=== PATIENT | female | born 1945 | race Caucasian/White ===

== ENCOUNTER 2016-10-22 16:38 | Emergency (ER) | payer MEDICARE, OTHER ==
[2016-10-22 17:26] VITALS: RESP 18
[2016-10-22 18:32] LABS: BASO % 0.4 % (0.0-2.0); EOS # 0.1 K/uL (0.0-0.7); EOS % 2.6 % (0.0-4.0); HEMATOCRIT 30.7 % (34.0-47.0); LYMPH # 1.9 K/uL (1.0-4.3); LYMPH % 54.2 % (20.0-40.0); MEAN CELL VOLUME 91.7 fL (81.0-99.0); MEAN CORPUSCULAR HEMOGLOBIN 28.9 pg (27.0-31.0); MEAN CORPUSCULAR HGB CONC 31.5 g/dL (33.0-37.0); MEAN PLATELET VOLUME 8.3 fL (7.2-11.7); MONO # 0.4 K/uL (0.0-0.8); MONO % 10.4 % (0.0-10.0); RED CELL DISTRIBUTION WIDTH 21.8 % (11.5-14.5); WHITE BLOOD COUNT 3.5 K/uL (4.8-10.8)
[2016-10-22 18:36] LABS: CHLORIDE 98 mmol/L (98-107); SODIUM 137 mmol/L (132-148)
[2016-10-22 18:39] LABS: ALB/GLOB RATIO 0.9 (1.0-2.1); ALKALINE PHOSPHATASE 84 U/L (38-126); ALT/SGPT 55 U/L (9-52); AST/SGOT 105 U/L (14-36); BILIRUBIN,TOTAL 1.1 mg/dL (0.2-1.3); BLOOD UREA NITROGEN 9 mg/dL (7-17); CARBON DIOXIDE 24 mmol/L (22-30); GFR AFRICAN-AMERICAN > 60; TOTAL PROTEIN 7.8 g/dL (6.3-8.3)
[2016-10-22 18:40] LABS: CALCIUM 9.3 mg/dl (8.6-10.4); GLUCOSE,RANDOM 210 mg/dL (65-105)
[2016-10-22 18:46] LABS: RBC URINE 1 /hpf (0-3); URINE BACTERIA FEW (<OCC); URINE BILIRUBIN NEGATIVE (NEGATIVE); URINE BLOOD NEGATIVE (NEGATIVE); URINE GLUCOSE (UA) 3+ mg/dL (Normal); URINE KETONE TRACE mg/dL (NEGATIVE); URINE LEUKOCYTE ESTERASE 1+ Leu/uL (Negative); URINE PROTEIN 1+ mg/dL (NEGATIVE); WBC URINE 42 /hpf (0-5)
[2016-10-22 18:59] LABS: URINE COLOR YELLOW (YELLOW)
--- NOTE | 2016-10-22 19:43 | C.PDOC ---
History Of Present Illness 71 y/o female, with PMHx chronic back pain, complaining of right sided back pain radiating into the buttocks since a fall three days ago. Denies numbness, weakness, bowel/bladder incontinence. Was taking Tylenol without relief. Also complains of dysuria and urinary frequency. No fever today. 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 denies: Incontinence, New Weakness, New Numbness Recent travel outside of the [place]: No Additional History Per: Patient Past Medical History Reviewed: Nursing Documentation, Vital Signs Vital Signs: Last Vital Signs Temp 98.7 F 10/22/16 19:49 Pulse 67 10/22/16 19:49 Resp 18 10/22/16 19:49 BP 168/71 H 10/22/16 19:49 Pulse Ox 99 10/22/16 20:16 - Medical History PMH: Arthritis, Back Problems, Diabetes, HTN, Hypothyroidism, Migraine Denies: Chronic Kidney Disease Family History: States: Unknown Family Hx - Social History Hx Tobacco Use: No Hx Alcohol Use: No Hx Substance Use: No - Immunization History Hx Tetanus Toxoid Vaccination: No Hx Influenza Vaccination: No Hx Pneumococcal Vaccination: No Review Of Systems Except As Marked, All Systems Reviewed And Found Negative. Genitourinary: Positive for: Dysuria, Frequency Musculoskeletal: Positive for: Back Pain Neurological: Negative for: Weakness, Numbness Physical Exam - Physical Exam Appears: Non-toxic, No Acute Distress Skin: Warm, Dry Nose: Normal Oral Mucosa: Moist Neck: Supple Chest: Symmetrical, No Deformity Cardiovascular: Rhythm Regular Respiratory: Normal Breath Sounds, No Rales, No Rhonchi, No Stridor, No Wheezing Back: Paraspinal Tenderness (right sided lumbar), No Straight Leg Raising Extremity: Normal ROM ED Course And Treatment - Laboratory Results Result Diagrams: 10/22/16 18:24 10/22/16 18:24 O2 Sat by Pulse Oximetry: 99 (RA) Pulse Ox Interpretation: Normal Medical Decision Making Medical Decision Making: Patient given Toradol. Urinalysis obtained. On reevaluation her pain is improved. Urinalysis is positive for UTI and she was given Cipro. Discussed signs of concern for UTI that is not improving on antibiotics including hyperglycemia, persistent worsening symptoms, and fever. Follow up with pmd in 1-2 days. Disposition Doctor Will See Patient In The: Office Counseled Patient/Family Regarding: Diagnosis, Need For Followup - Disposition Disposition: HOME/ ROUTINE Disposition Time: 19:41 Condition: STABLE Additional Instructions: Vaya a baker mdico o la clnica en 2-5 mejia sin falta, para mas evaluacin. [place] los medicamentos negar indicado. Volver a la rasta de emergencia en cualquier momento si los sntomas persisten o empeoran. Prescriptions: Ciprofloxacin HCl [Cipro] 500 mg PO BID #14 tab Naproxen [Naprosyn] 1 tab PO BID PRN #20 tab PRN Reason: Pain Instructions: Urinary Tract Infection in Women (DC), Back Pain (ED) Print Language: HEBREW - Clinical Impression Clinical Impression: Low back strain, UTI (urinary tract infection) - Scribe Statement The provider has reviewed the documentation as recorded by the Scribe Farzana Golden
[2016-10-22 19:50] VITALS: BP 168/71; PULSE 67; TEMP 98.7
[2016-10-22 20:13] VITALS: O2SAT 99
--- NOTE | 2016-10-23 14:10 | RAD ---
PROCEDURE: Radiographs of the Lumbar Spine. HISTORY: pain COMPARISON: No prior. FINDINGS: BONES: Bone alignment and mineralization are normal. There is normal lumbar lordosis. There is no acute fracture or bone destruction. There is long right transverse process at L5. DISC SPACES: There are multilevel degenerative changes with large anterior osteophytes in the upper lumbar spine, reduced disc heights and multilevel facet arthropathy, worse at L5-S1. OTHER FINDINGS: There are no pathologic soft tissue calcifications. Both sacroiliac joints are normal. IMPRESSION: No acute fracture. Multilevel degenerative changes, worse at L5-S1.
== END 2016-10-22 19:50 | disposition home or self-care (01) ==
LOC: C.ER 16:38
DX: S39.012A Strain of muscle, fascia and tendon of lower back, initial encounter (principal); W19.XXXA Unspecified fall, initial encounter; N39.0 Urinary tract infection, site not specified
CPT/HCPCS: 72100; 80053; 81001; 85025; 87086; 87181; 96374; 99284; J1885

== ENCOUNTER 2018-09-08 12:01 | Outpatient (CLI) | payer MEDICARE | END 2018-09-08 12:02 | disposition home or self-care (01) | LOC: C.CTH 12:01 ==